=== PATIENT | male | born 1955 | race Hispanic/Latino ===

== ENCOUNTER 2016-07-23 10:15 | Emergency (ER) | payer OTHER ==
[~2016-07-23] VITALS: Ht 152.4 cm; Wt 76.8 kg
[~2016-07-23 10:15] MED LIST: DXM4T PO; HYDR50CA PO
[2016-07-23 10:22] VITALS: BP 138/83; PULSE 78; RESP 10; O2SAT 99
--- NOTE | 2016-07-23 11:22 | ED.REPORT ---
HPI-Back Pain 40 and Over Date of Service Jul 23, 2016 ED Provider: Rupa Horan History of Present Illness: pain for 2 years in the back. Sees Isis Mendoza monthly, saw last month, next appointment is 07/28/2016. took ibuprofen 800 mg. No help. no new injury. not working. back injections have not been helpful. MRI in 2014 was normal. 02/21, 09/21 and then goes up. pain with bending. denies bowel or bladder concerns. Nursing Notes Stated Complaint: BACK PAIN Chief Complaint: Back Pain or Injury Nursing Notes Reviewed: Yes Allergies: Coded Allergies: No Known Allergies (Verified Allergy, Unknown, 01/28/16) Scheduled Dexamethasone (Dexamethasone) 4 Mg Tablet 10 MG PO DAILY Take 10 mg of decadron daily for 5 days. Scheduled PRN Hydroxyzine Pamoate (Vistaril) 50 Mg Capsule 50 MG PO HS PRN PRN For Insomnia take one at night for 10 days to help with slepp and muscle relaxation General Time Seen by MD: 11:17 Chief Complaint Lumbar pain Hx Obtained From: Patient Sudden in Onset?: No Onset Occurred: More than a week ago... (>6 months) Symptom Duration: Since onset Severity: Current: Pain level 10 out of 10 Past Medical History Past Medical History Healthy, chronic back pain Denies: Asthma, Diabetes mellitus Past Surgical History Pt denies Smoking History Never Smoker Social History Alcohol Use: Denies alcohol use Drug Use: Denies drug use Occupation lives with and 4 daughters, no work or school 07/23/2016 Ambulatory Status Independent Review of Systems Basic Review of Systems Eyes: Vision NL, No discharge Skin: No bruising, No rash, No itch Psychiatric: Normal thought content Physical Exam Physical Exam Notes: patient refuses to do heel , tor to heel or toe walk. He is able to walk without difficulty, no sign of muscle wasting Initial Vital Signs Vital Signs (First) Date Time Temp Pulse Resp B/P Pulse Ox O2 Delivery O2 Flow Rate FiO2 07/23/16 10:22 36.8 78 10 138/83 99 Room Air Initial VS: Reviewed, Vital signs normal Head / Eyes: Atraumatic, Normocephalic, PERRL ENT: Mucous membranes moist, Conjunctiva normal, No scleral icterus Neck: Supple, Non-tender, Full range of motion Lymphatic: No lymphadenopathy Extremities: Vascular intact, Neuro intact, No swelling, No tenderness Skin: Warm, Dry, No cyanosis Psychiatric: Mood/affect normal, Behavior normal, Normal thought content General/Constitutional: Awake, Alert, No acute distress, Well appearing, Well developed, Well hydrated, Well nourished, Cooperative, Not toxic appearing Respiratory / Chest: Atraumatic, Breath sounds NL, Breath sounds = bilat, No respiratory distress Cardiovascular: Heart rate NL, Regular rhythm, Heart sounds NL Abdomen: Atraumatic, Soft, Non-tender patient indicates entire lower whole back is hurting. No flank tenderness Neurologic: Oriented X3, Speech NL, No motor deficits Interpretation & Diagnostics Lab Results Interpretation Lab Results Interpretation: u tox is negative. urine shows small amount of blood Re-Eval/Medical Decision Med Decision/Clinical Course 60 year old male present for pain control for his ongoing back pain from L and I injury in 2014. Patient is seen by Isis Bailon . Denies any new injury or fall. No sign of bowel obstruction or dissection. Encouraged to discuss pain control with Isis. Source of Hx: Old records Discharge & Departure Impression: Primary Impression: Low back pain Additional Impressions: Chronic pain Hematuria Disposition: Home Patient Instructions: Chronic Pain Management (ED), Low Back Strain (ED) Additional Instructions: I am sorry you are having this discomfort. Pain that has been ongoing for 2 years can be difficult to treat. You may benefit from a medication call duloxetine. Please discuss this with Isis to see if she thinks this would be indicated. For now you received an injection of toradol. . Continue with ketorolac 10 mg up 4 times a day for 5 days. You can use visteral 50 mg at night to help with sleep. Movement is helpful. Do not stay in bed or sit in a chair for an extended period of time. Urine does show a small amount of blood. You will need to provided a repeat urine in 7 to 10 days to recheck this. If it continues, it will need to be worked up. Referrals: Ariana Burch MD (PCP) Isis Mendoza EDSupervising Provider for APC: Sunni Gamez MD copies to: Ariana Burch MD, Sue ARNP Jul 23, 2016 11:22
[2016-07-23] MEDS ORDERED: Ketorolac 30 mg/mL 2 mL Inj IM ONE (11:50)
[2016-07-23 13:19] VITALS: BP 132/94; PULSE 66; RESP 16; O2SAT 100
== END 2016-07-23 13:21 | disposition home or self-care (01) ==
LOC: SED 10:15
DX: M54.5 Low back pain (principal); G89.29 Other chronic pain; R31.9 Hematuria, unspecified
CPT/HCPCS: 96372; 99284; J1885

== ENCOUNTER 2016-08-31 17:24 | Emergency (ER) | payer OTHER ==
[~2016-08-31] VITALS: Ht 162.6 cm; Wt 75.0 kg
[2016-08-31 17:26] VITALS: BP 133/80; PULSE 71; RESP 15; O2SAT 99
--- NOTE | 2016-08-31 19:16 | ED.REPORT ---
HPI-Back Pain 40 and Over Date of Service Aug 31, 2016 ED Provider: Gerald Srivastava MD Orestes Leblanc is a pleasant 60-year-old gentleman with history of back pain for the last 2-1/2 years, reports to the emergency department with recurrence and worsening of chronic back pain. He describes working on a bench yesterday doing repetitive motion, when he felt return of pain particularly on his right side of his mid back down to his buttocks. He said he tried taking 3 pills of an unnamed medication which did not offer any help. Has participated in a " back to work" program and doing exercises at home. He was seen at the end of July, roughly 3 weeks ago for similar symptoms and complaints of hematuria which prompted his KUB CT which was negative for stone. 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 Today he again states that he believes he saw blood in his urine yesterday as well as this morning before returning to the emergency department, the pain in his back is sharp, constant, hurts to lay down, does not respond to any medication [id number], he denies incontinence, numbness , but does say he has bilateral lower extremity weakness necessitating use of a front wheeled walker but denies that this is new onset. He has had no shortness of breath no chest pain. He does endorse diarrhea for the last 3 days , some recent dizziness, and says he has lost 7 pounds in the last 3 days. Nursing Notes Stated Complaint: BACK PAIN Chief Complaint: Back Pain or Injury Nursing Notes Reviewed: Yes Allergies: Coded Allergies: No Known Allergies (Verified Allergy, Unknown, 08/31/16) Scheduled PRN Methocarbamol (Methocarbamol) 750 Mg Tablet 750 MG PO QID PRN PRN For Spasm General Time Seen by MD: 19:12 Chief Complaint Back pain Sudden in Onset?: Yes Similar Sx Previous: Yes Past Medical History Past Medical History Healthy, chronic back pain Past Surgical History Pt denies Smoking History Never Smoker Social History Alcohol Use: Denies alcohol use Drug Use: Denies drug use Occupation lives with and 4 daughters, no work or school 07/23/2016 Ambulatory Status Independent Review of Systems Complete sys rev & neg: except as marked. Physical Exam General: Standing at bedside supported by front-wheeled walker. Mild distress HEENT: Normocephalic, atraumatic, EOMI grossly,mucous membranes moist, neck supple without lymphadenopathy. Cardiovascular: Regular rate and rhythm, no clicks murmurs rubs, peripheral pulses 2/4 equal bilaterally Pulmonary: Clear to auscultation bilaterally, no W/R/R. Abdominal: Soft to palpation, bowel sounds present 4, no hepatosplenomegaly. Negative rebound. Extremities: No edema appreciated. No tenderness, asymmetry. Neuro: Neurologically grossly intact, strength is equal bilaterally upper and lower extremities. MSK: Gait is antalgic, patient has pain when lying flat, there is tenderness over his paraspinal musculature, right greater than left from the area of T12 down past the sacroiliac joint. Initial Vital Signs Vital Signs (First) Date Time Temp Pulse Resp B/P Pulse Ox O2 Delivery O2 Flow Rate FiO2 08/31/16 17:26 36.2 71 15 133/80 99 Room Air Initial VS: Reviewed Interpretation & Diagnostics Lab Results Interpretation Test 08/31/16 20:58 Urine Color Yellow (YELLOW) Urine Appearance Clear (CLEAR,HAZY) Urine pH 5.5 (5.0-8.0) Urine Specific [place] 1.010 (1.003-1.035) Urine Protein Negativemg/dL (NEG,TRACE) Urine Glucose (UA) Negativemg/dL (NEGATIVE) Urine Ketones Negativemg/dL (NEGATIVE) Urine Occult Blood Trace (NEGATIVE) Urine Nitrite Negative (NEGATIVE) Urine Bilirubin Negative (NEGATIVE) Urine Urobilinogen Normalmg/dL (NORMAL) Urine Leukocyte Esterase Negative (NEGATIVE) Urine RBC 0-2/hpf (0-2) Urine WBC 0-5/hpf (0-5) Urine Epithelial Cells Few/hpf (NONE-MOD) Urine Crystals None seen (NONE SEEN) Urine Bacteria Few/hpf (NONE-FEW) Urine Hyaline Casts None/lpf (NONE) Urine Granular Casts None seen (NONE SEEN) Urine Waxy Casts None seen (NONE SEEN) Urine Red Blood Cell Casts None seen (NONE SEEN) Urine White Blood Cell Casts None seen (NONE SEEN) Urine Mucus None seen (None Seen) Urine Trichomonas None seen (NONE SEEN) Urine Yeast None (NONE SEEN) Urinalysis Comment None Urine Culture Reflexed Not indicated Re-Eval/Medical Decision Med Decision/Clinical Course Mr. Leblanc was evaluated for acute on chronic back pain, and complaints of hematuria. Based on his mechanism of injury and his past felt that this is most likely due to muscle strain, he received a CT KUB 3 weeks ago for similar symptoms which was negative for any signs of nephrolithiasis. Urinalysis today did not show any occult blood, or red blood cells per high-power field. He was given 30 mg of Toradol IM, which he said helped a little. Our impression was discussed with the patient as well as guidance to follow-up with his primary care doctor. He was given a prescription for muscle relaxers with instructions on how to take them. Patient stated understanding and agreement. Red flag symptoms and return precautions were discussed. Discharge & Departure Impression: Primary Impression: Strain of back Encounter type: subsequent encounter Qualified Code: S39.012D - Strain of muscle, fascia and tendon of lower back, subsequent encounter Additional Impression: Hematuria Disposition: Home Discharge Condition All VS Reviewed: Yes Condition: Stable Patient Instructions: Acute Low Back Pain (ED) Additional Instructions: Thank you for entrusting us with your care. We feel that based on your description of pain you have strained your back, aggravating your old areas of pain. Continue doing stretching, ice and heat. Take 600mg of Ibuprofen every 6 hours with food and drink plenty of water. You are being provided a prescription for a muscle relaxer. This can cause sleepiness. DO NOT use if you are going to drive, operate machinery, or be in any situation where you need to stay awake. Do not take with alcohol. If you have numbess in your legs or urinate or defecate accidently, please return to the ER immediately. Please follow up with your primary care doctor regarding the back pain. Inform them of seeing red in your urine. We did not see any blood in the sample you provided today. Referrals: Ariana Burch MD (PCP) Isis Mendoza (Family) EDSupervising Provider for APC: Gerald Srivastava MD Attending Statement Attending attestation: I saw this patient in conjunction with the above named resident. I was present for all menendez portions of the history taking and physical examination. I agree with the workup, evaluation, treatment and disposition. Gerald Srivastava MD copies to: Isis Mendoza; Ariana Burch MD, Beck O MD Aug 31, 2016 19:16 Sebastián Lewis DO Aug 31, 2016 19:50
[2016-08-31 21:35] LABS: APPEARANCE,URINE CLEAR (CLEAR,HAZY); COLOR,URINE YELLOW (YELLOW)
[2016-08-31 21:36] LABS: OCCULT BLOOD,URINE TRACE (NEGATIVE); PH,URINE 5.5 (5.0-8.0); UROBILINOGEN,URINE NORMAL (NORMAL)
[2016-08-31] MEDS ORDERED: METH750T3 PO (22:24)
[2016-08-31 22:47] VITALS: BP 134/84; PULSE 58; RESP 18; O2SAT 98
== END 2016-08-31 22:44 | disposition home or self-care (01) ==
LOC: SED 17:24
DX: S39.012A Strain of muscle, fascia and tendon of lower back, initial encounter (principal); R31.9 Hematuria, unspecified; X50.3XXA Overexertion from repetitive movements, initial encounter; Y93.89 Activity, other specified; Y92.89 Other specified places as the place of occurrence of the external cause; Y99.0 Civilian activity done for income or pay
CPT/HCPCS: 81000; 96372; 99284; J1885